=== PATIENT | male | born 1965 | race Native Hawaiian/Other Pacific Islander ===

== ENCOUNTER 2017-08-21 13:50 | Emergency (ER) | payer SELFPAY ==
[~2017-08-21] VITALS: Ht 157.5 cm; Wt 71.4 kg
[2017-08-21 13:55] VITALS: TEMP 97.6
[2017-08-21 14:15] LABS: BASO % 0.5 % (0.0-2.0); EOS # 0.2 (0.0-0.7); EOS % 2.4 % (0-4.0); GRAN # 4.9 (1.4-6.5); GRAN % 58.4 % (42.2-75.2); HEMOGLOBIN 16.6 g/dl (13.5-18.0); LYMPH # 2.6 (1.2-3.4); LYMPH % 30.9 % (20.0-51.0); MEAN CELL VOLUME 90 fl (80.0-100.0); MEAN CORPUSCULAR HEMOGLOBIN 31 pg (27.0-31.0); MEAN CORPUSCULAR HGB CONC 35 g/dl (33.0-37.0); MEAN PLATELET VOLUME 10.6 fl (7.4-10.4); MONO # 0.6 (0.1-0.6); MONO % 7.2 % (1.7-9.3); PLATELET COUNT 213 K/mm3 (130-400); RED BLOOD COUNT 5.32 M/mm3 (4.20-5.60); REDCELL DISTRIBUTION WIDTH-CV 13.5 % (11.5-14.5)
[2017-08-21] MEDS ORDERED: CIPRO 500MG TA500 MG PO (14:22)
[2017-08-21] MEDS ORDERED: FLAGYL500 MG PO (14:22)
[2017-08-21] MEDS ORDERED: PERCOCET 325 MG1 TA2 PO (14:23)
[2017-08-21] MEDS ORDERED: NORCO 325 MG-51 TAB PO (14:24)
[2017-08-21 14:30] LABS: COLLECTION METHOD CLEAN CATCH
[2017-08-21 14:41] LABS: PH 6 (5-8); SQUAMOUS EPITHELIAL None Seen /hpf; URINE APPEARANCE Clear; URINE BACTERIA None Seen /hpf; URINE BILIRUBIN Negative (NEGATIVE); URINE BLOOD Negative (NEGATIVE); URINE COLOR Yellow; URINE GLUCOSE Negative (NEGATIVE); URINE KETONE Negative (NEGATIVE); URINE LEUKOCYTE ESTERASE 1+ (NEGATIVE); URINE NITRATE Negative (NEGATIVE); URINE PROTEIN(semi-quant) Negative (NEGATIVE); URINE RBC 0-2 /hpf; URINE UROBILINOGEN Negative (NEGATIVE)
[2017-08-21 14:59] LABS: ALANINE AMINOTRANSFERASE 53 U/L (21-72); ALBUMIN 3.8 gm/dL (3.5-5.0); ALKALINE PHOSPHATASE 93 U/L (50-136); ANION GAP 13 mmol/L (7-16); AST,SGOT 33 U/L (15-37); BILIRUBIN,TOTAL 0.5 mg/dL (0.0-1.0); BLOOD UREA NITROGEN 12 mg/dL (9-20); C-REACTIVE PROTEIN < 0.5 mg/dL (0.0-0.9); CARBON DIOXIDE 22 mmol/L (22-30); CHLORIDE 105 mmol/L (98-107); CREATININE, serum 0.88 mg/dL (0.66-1.25); GLUCOSE 100 mg/dL (74-106); SODIUM 140 mmol/L (137-145)
[2017-08-21] MEDS ORDERED: NORCO 325 MG-7.1 TAB PO (15:46)
[2017-08-21 16:02] VITALS: BP 132/91; PULSE 73
== END 2017-08-21 16:09 | disposition home or self-care (01) ==
LOC: COL.ER 13:50
PROVIDERS: Emergency Medicine
DX: R10.30 Lower abdominal pain, unspecified (principal); Z87.19 Personal history of other diseases of the digestive system
CPT/HCPCS: J1170; J2405; J7030; Q9967

== ENCOUNTER 2017-08-28 06:36 | Day surgery (SDC) | payer SELFPAY ==
[~2017-08-28] VITALS: Ht 157.5 cm; Wt 69.5 kg
[~2017-08-28 06:36] MED LIST: CIPRO 500MG TA500 MG PO; FLAGYL500 MG PO; NORCO 325 MG-51 TAB PO; NORCO 325 MG-7.1 TAB PO; PERCOCET 325 MG1 TA2 PO
[2017-08-28 06:54] VITALS: BP 135/100; PULSE 106; TEMP 97.9
[2017-08-28 08:15] VITALS: BP 124/92; PULSE 102; TEMP 97.1
[2017-08-28 08:30] VITALS: BP 136/98; PULSE 101
[2017-08-28 08:45] VITALS: BP 128/90; PULSE 97
== END 2017-08-28 09:00 | disposition home or self-care (01) ==
LOC: SDCO 06:36
DX: Z12.11 Encounter for screening for malignant neoplasm of colon (principal); D12.4 Benign neoplasm of descending colon; K63.5 Polyp of colon; K57.32 Diverticulitis of large intestine without perforation or abscess without bleeding; N32.1 Vesicointestinal fistula; F17.210 Nicotine dependence, cigarettes, uncomplicated
CPT/HCPCS: OP; J2250; J2405; J3010; J7120

== ENCOUNTER 2017-09-26 10:02 | Inpatient (IN) | payer SELFPAY ==
[~2017-09-26] VITALS: Ht 157.5 cm; Wt 69.0 kg
[2017-09-28] VITALS (13 sets, daily range): BP systolic 124–137; BP diastolic 78–91; PULSE 85–104; TEMP 97.4–98.7
[2017-09-28 07:58] LABS: BASO % 0.4 % (0.0-2.0); EOS # 0.1 (0.0-0.7); EOS % 1.4 % (0-4.0); GRAN # 6.6 (1.4-6.5); GRAN % 72.3 % (42.2-75.2); HEMATOCRIT 49.8 % (42.0-52.0); LYMPH # 1.8 (1.2-3.4); LYMPH % 19.7 % (20.0-51.0); MEAN CELL VOLUME 90 fl (80.0-100.0); MEAN CORPUSCULAR HEMOGLOBIN 31 pg (27.0-31.0); MEAN CORPUSCULAR HGB CONC 34 g/dl (33.0-37.0); MEAN PLATELET VOLUME 10.1 fl (7.4-10.4); MONO # 0.5 (0.1-0.6); MONO % 5.8 % (1.7-9.3); PLATELET COUNT 234 K/mm3 (130-400); RED BLOOD COUNT 5.54 M/mm3 (4.20-5.60); REDCELL DISTRIBUTION WIDTH-CV 12.8 % (11.5-14.5)
[2017-09-28 08:03] LABS: CALCIUM 8.9 mg/dL (8.4-10.2); CREATININE, serum 0.74 mg/dL (0.66-1.25); POTASSIUM 3.4 mmol/L (3.4-5.0)
[2017-09-29] VITALS (7 sets, daily range): BP systolic 110–142; BP diastolic 75–83; PULSE 62–94; TEMP 95–99.2
[2017-09-29 06:57] LABS: HEMATOCRIT 42.7 % (42.0-52.0)
[2017-09-29 07:05] LABS: HEMOGLOBIN 14.6 g/dl (13.5-18.0)
[2017-09-29 07:13] LABS: CALCIUM 8.5 mg/dL (8.4-10.2); CREATININE, serum 0.76 mg/dL (0.66-1.25); MAGNESIUM 1.9 mg/dL (1.6-2.3); PHOSPHOROUS 3.2 mg/dL (2.5-4.5); POTASSIUM 3.8 mmol/L (3.4-5.0)
[2017-09-30 04:31] VITALS: BP 113/78; PULSE 78; TEMP 98.5
[2017-09-30 07:55] VITALS: BP 137/94; PULSE 77; TEMP 97.8
[2017-09-30] MEDS ORDERED: FLAGYL500 MG PO (10:20)
[2017-09-30] MEDS ORDERED: CIPRO 500MG TA500 MG PO (10:20)
[2017-09-30] MEDS ORDERED: ROXICODONE 55 MG/TAB PO (10:21)
[2017-09-30] MEDS ORDERED: TYLENOL 500MG500 MG PO (10:21)
[2017-09-30] MEDS ORDERED: NEURONTIN100 MG/CAP PO (10:22)
[2017-09-30 10:25] LABS: BASO % 0.4 % (0.0-2.0); EOS # 0.1 (0.0-0.7); EOS % 0.8 % (0-4.0); GRAN % 70.1 % (42.2-75.2); HEMATOCRIT 41.3 % (42.0-52.0); LYMPH % 23.4 % (20.0-51.0); MEAN CELL VOLUME 91 fl (80.0-100.0); MEAN CORPUSCULAR HEMOGLOBIN 31 pg (27.0-31.0); MEAN CORPUSCULAR HGB CONC 34 g/dl (33.0-37.0); MEAN PLATELET VOLUME 10.8 fl (7.4-10.4); MONO # 0.4 (0.1-0.6); MONO % 4.7 % (1.7-9.3); PLATELET COUNT 182 K/mm3 (130-400); RED BLOOD COUNT 4.56 M/mm3 (4.20-5.60); REDCELL DISTRIBUTION WIDTH-CV 12.9 % (11.5-14.5)
[2017-09-30 10:29] LABS: CALCIUM 8.4 mg/dL (8.4-10.2); CREATININE, serum 0.69 mg/dL (0.66-1.25); POTASSIUM 3.1 mmol/L (3.4-5.0)
[2017-09-30 11:31] VITALS: BP 125/66; PULSE 68; TEMP 98.1
== END 2017-09-30 16:00 | disposition home or self-care (01) | DRG 330 ==
LOC: INPTSU 09-28 06:49 → SURG 09-28 09:00
PROVIDERS: Surgery; Urology
PROC: 3E0 Administration, Physiological Systems and Anatomical Regions, Introduction (ICD-10-PCS; 2017-09-28)
PROC: 0DTN4ZZ Resection of Sigmoid Colon, Percutaneous Endoscopic Approach (ICD-10-PCS; principal; 2017-09-28 09:00)
PROC: 8E0W4CZ Robotic Assisted Procedure of Trunk Region, Percutaneous Endoscopic Approach (ICD-10-PCS; 2017-09-28 09:00)
DX: K57.20 Diverticulitis of large intestine with perforation and abscess without bleeding (principal); N32.1 Vesicointestinal fistula; F17.210 Nicotine dependence, cigarettes, uncomplicated
CPT/HCPCS: A4314; A9284; C1769; J0690; J1100; J1650; J2370; J2405; J2704; J2710; J3010; J7120

== ENCOUNTER 2019-07-29 12:26 | Observation (INO) | payer SELFPAY ==
[~2019-07-29] VITALS: Ht 157.5 cm; Wt 82.2 kg
[~2019-07-29 12:26] MED LIST changes: +NEURONTIN100 MG/CAP PO; +ROXICODONE 55 MG/TAB PO; +TYLENOL 500MG500 MG PO
--- NOTE | 2019-07-29 14:10 | NUR ---
Patient to room via EMS cot. Having pain in lower abd that has been getting worse over last 4 days. Has had similar episode in the past. Patient primary language swedish. Girlfriend is with the patient. It was explained to the girlfriend that due to COVID 19 she is not able to stay with the patient and will need to call for a ride. Girlfriend understands and calls around for a ride. Patient is alert and oriented x4. Understands [place]. 20 gauge noted in right forearm with NS at 75mL/hr. Site without redness/swelling/discharge.
[2019-07-29 14:15] VITALS: BP 137/87; PULSE 76; TEMP 98.8
--- NOTE | 2019-07-29 15:34 | NUR ---
Lying in bed with eyes open. Continues to have some discomfort in lower abdomen, tolerable at this time. Explain collection process for UA. Significant other remains in room and she is awaiting for her ride to show up. Patient denies needs at this time.
--- NOTE | 2019-07-29 16:21 | NUR ---
Patient to CT via wheel chair.
--- NOTE | 2019-07-29 16:34 | NUR ---
Patient back to room from CT.
[2019-07-29 17:11] LABS: COLLECTION METHOD CLEAN CATCH
--- NOTE | 2019-07-29 17:22 | NUR ---
Patient spouse assisted to ER exit to await ride.
[2019-07-29 17:25] LABS: MUCOUS Present /lpf; PH 5 (5-8); SQUAMOUS EPITHELIAL None Seen /hpf; URINE APPEARANCE Clear; URINE BACTERIA None Seen /hpf; URINE BILIRUBIN Negative (NEGATIVE); URINE BLOOD 1+ (NEGATIVE); URINE COLOR Yellow; URINE GLUCOSE Negative (NEGATIVE); URINE KETONE Negative (NEGATIVE); URINE LEUKOCYTE ESTERASE Negative (NEGATIVE); URINE NITRATE Negative (NEGATIVE); URINE PROTEIN(semi-quant) Negative (NEGATIVE); URINE UROBILINOGEN Negative (NEGATIVE)
--- NOTE | 2019-07-29 18:33 | NUR ---
Sitting up in bed eating clear liquid dinner. Voices no further needs at this time.
--- NOTE | 2019-07-29 19:30 | NUR ---
Report received. Assumed care for process operator. Assessment compete. VS stable. A&Ox3. Denies nausea/shortness of breath. Tolerating clears. States he has an intermittent ache in abdomen-currently none. Asking if he can be dischaged tonight. Discussed monitoring over night and DC tomorrow as long as pain is under control. Verbalizes understanding. IV to right forearm with NS@100ml/hr. SCDs on. Call light in reach. Will monitor.
[2019-07-29 20:00] VITALS: BP 147/73; PULSE 81; TEMP 98.4
[2019-07-30 00:38] VITALS: BP 139/71; PULSE 86; TEMP 98.8
[2019-07-30 05:04] VITALS: BP 119/70; PULSE 77; TEMP 98
--- NOTE | 2019-07-30 05:11 | NUR ---
Rested off and on this shift. Discussed plan of care this morning. States he has no nausea-states he is very hungry-clear liquids given. Rates pain low this shift 2/10 on pain scale-described as ache-intermittent. States Denies passing gas and reports last bowel movement three days ago. States he normally goes several times a day. Concerned about blood in urine-states he knows he does not drink enough. Teaching done on importance of adequate PO intake. Verbalizes understanding. Denies any other questions or concerns but encouraged to call for needs. Verbalizes understanding. Call light in reach. Will monitor.
[2019-07-30 07:16] LABS: CALCIUM 8.1 mg/dL (8.4-10.2); CREATININE, serum 0.76 (0.66-1.25); POTASSIUM 3.8 mmol/L (3.4-5.0)
[2019-07-30 07:25] LABS: BASO % 0.3 % (0.0-2.0); EOS # 0.2 (0.0-0.7); EOS % 3.3 % (0-4.0); GRAN # 3.6 (1.4-6.5); GRAN % 59.5 % (42.2-75.2); HEMATOCRIT 40.8 % (42.0-52.0); HEMOGLOBIN 13.8 g/dl (13.5-18.0); LYMPH # 1.8 (1.2-3.4); LYMPH % 30.1 % (20.0-51.0); MEAN CELL VOLUME 93 fl (80.0-100.0); MEAN CORPUSCULAR HEMOGLOBIN 32 pg (27.0-31.0); MEAN CORPUSCULAR HGB CONC 34 g/dl (33.0-37.0); MEAN PLATELET VOLUME 11.3 fl (7.4-10.4); MONO # 0.4 (0.1-0.6); MONO % 6.3 % (1.7-9.3); PLATELET COUNT 161 K/mm3 (130-400); RED BLOOD COUNT 4.37 M/mm3 (4.20-5.60); REDCELL DISTRIBUTION WIDTH-CV 12.8 % (11.5-14.5)
[2019-07-30 07:50] VITALS: BP 141/65; PULSE 76; TEMP 98.3
--- NOTE | 2019-07-30 08:00 | NUR ---
Patient in bed resting. Alert and oriented x 3. Assessment complete. Denies pain at this time. Tolerating diet without difficulties. IV fluids infusing per orders to right forarm IV. Denies further needs at this time.
--- NOTE | 2019-07-30 09:50 | NUR ---
Hospitalist in to see patient.
[2019-07-30] MEDS ORDERED: TYLENOL 500MG500 MG PO (09:59)
[2019-07-30] MEDS ORDERED: PROTONIX 40MG T40 MG PO (10:00)
--- NOTE | 2019-07-30 11:18 | NUR ---
Discharge education provided to patient. Educated on new medications and when to schedule follow up appoitment. All questions answered. INT to right forarm discontinued, catheter tip intact. Denies pain or further needs at this time. Patient ambulated out with surgical staff.
--- NOTE | 2019-07-30 11:40 | NUR ---
First visit from the waiter/waitress tavern. No needs right now.
== END 2019-07-30 11:20 | disposition home or self-care (01) ==
LOC: SURG 12:26
PROVIDERS: Physician Assistant; ADMIT Student in an Organized Health Care Education/Training Program
DX: R10.32 Left lower quadrant pain (principal); R30.0 Dysuria; F17.210 Nicotine dependence, cigarettes, uncomplicated; Z79.899 Other long term (current) drug therapy; Z90.49 Acquired absence of other specified parts of digestive tract
CPT/HCPCS: 99238; G0378; J7030; Q9967